=== PATIENT | male | born 1980 | race African-American/Black ===

== ENCOUNTER 2020-04-01 22:32 | Emergency (ER) | payer SELFPAY ==
[~2020-04-01] VITALS: Ht 175.3 cm; Wt 86.2 kg
[2020-04-01 22:57] VITALS: BP 132/92
[2020-04-01] MEDS ORDERED: cefTRIAXone SODIUM 250 MG VL IM ONE (23:15)
[2020-04-01] MEDS ORDERED: AZITHROMYCIN 250 MG TAB PO ONE (23:15)
== END 2020-04-01 23:46 | disposition home or self-care (01) ==
LOC: EDBD 22:34 → ER 22:34
DX: Z20.2 Contact with and (suspected) exposure to infections with a predominantly sexual mode of transmission (principal)
CPT/HCPCS: 96372; 99283; J0696

== ENCOUNTER 2020-09-25 18:48 | Emergency (ER) | payer MEDICAID, OTHER ==
[~2020-09-25] VITALS: Ht 175.3 cm; Wt 86.2 kg
[2020-09-25 22:07] VITALS: BP 107/86
== END 2020-09-25 22:32 | disposition home or self-care (01) ==
LOC: ER 18:48
DX: S02.40FD Zygomatic fracture, left side, subsequent encounter for fracture with routine healing (principal); S39.012A Strain of muscle, fascia and tendon of lower back, initial encounter; S63.501A Unspecified sprain of right wrist, initial encounter; V49.9XXA Car occupant (driver) (passenger) injured in unspecified traffic accident, initial encounter; Y93.89 Activity, other specified; Y92.89 Other specified places as the place of occurrence of the external cause; Y99.8 Other external cause status
CPT/HCPCS: 29125; 70450; 72070; 72100; 73110; 73562